=== PATIENT | female | born 1985 | race Caucasian/White ===

== ENCOUNTER 2021-12-18 09:17 | Emergency (ER) | payer OTHER, SELFPAY ==
--- NOTE | ~2021-12-18 | XR_ITS ---
XR chest 2V DATE: 12/18/2021 09:59 INDICATION: Post Covid cough since November 17 TECHNIQUE: PA and lateral views COMPARISON: None FINDINGS: Normal heart size. No hilar or mediastinal enlargement. No pulmonary infiltrate or consolidation, pleural effusion or pulmonary vascular congestion or pneumo thorax. Included skeletal structures are unremarkable. IMPRESSION: Negative Reviewed, dictated and finalized at location A. B RN IMPRESSION: Negative
[2021-12-18 09:24] VITALS: BP 129/78; PULSE 101; RESP 18; TEMP 37.4; O2SAT 98
--- NOTE | 2021-12-18 10:00 | ED.URI ---
HPI - URI/Sore Throat General Chief Complaint: Upper Respiratory Infection Stated Complaint: Cough/Fever/Loss of Taste Time Seen by Provider: 12/18/21 10:01 Source: patient and family Mode of arrival: ambulatory History of Present Illness HPI Narrative: PATIENT TESTED POSITIVE FOR COVID 19 ONE MONTH AGO. PATIENT PRESENTS WITH CONTINUED COUGH AND CONGESTION. FEVER OF 99 THIS AM. NO SHORTNESS OF BREATH AND NO CHEST PAIN. MD elicited complaint: fever and cough Related Data Allergies Allergy/AdvReac Type Severity Reaction Status Date / Time No Known Allergies Allergy Verified 12/18/21 09:46 Review of Systems Review of Systems: CONSTITUTIONAL: Denies fever, chills, or sweats. EYES: Denies visual changes, redness, or discharge. ENT: Denies rhinorrhea, congestion, sore throat, or otalgia. CARDIOVASCULAR: Denies chest pain, palpitations, or edema. RESPIRATORY: Denies dyspnea. reports cough and chest congestion GASTROINTESTINAL: Denies abdominal pain, nausea, vomiting, or diarrhea. GENITOURINARY: Denies dysuria or hematuria. SKIN: Denies rash or itching. MUSCULOSKELETAL: Denies back pain, joint pain, or myalgia. NEUROLOGIC: Denies headache, numbness, or weakness. PSYCHIATRIC: Denies anxiety or depression. Allergic/Immunologic: Comments: At time of signature, agree with nursing past medical, surgical, social and family history. There is no relevant family history pertinent to the presenting complaint Exam Narrative: GENERAL: Well-appearing, well-nourished, and in no acute distress. HEAD: Normocephalic, atraumatic. EYES: PERRLA and EOMI. ENT: Nares clear, no rhinorrhea or epistaxis. Mucous membranes moist. NECK: Supple. CHEST: Clear to auscultation. No respiratory distress. HEART: Regular rate and rhythm. No murmur heard. Normal peripheral pulses. ABDOMEN: Soft, nontender, nondistended, normal active bowel sounds. EXTREMITIES: Normal range of motion. No edema. SKIN: Warm, dry, no rash. NEURO: No focal deficits. Alert and oriented x3. Britney Coma Scale Eye Opening: Spontaneous 4 Britney Coma Scale Motor: Obeys Commands 6 Britney Coma Scale Verbal: Oriented 5 Britney Coma Scale Total 15 Course Course Level of Care: Express Care Visit Vital Signs Vital signs: Vital Signs Temperature 37.4 C 12/18/21 09:24 Pulse Rate 101 H 12/18/21 09:24 Respiratory Rate 18 12/18/21 09:24 Blood Pressure 129/78 12/18/21 09:24 Pulse Oximetry 98 12/18/21 09:24 Temperature 37.4 C 12/18/21 09:24 Pulse Rate 101 H 12/18/21 09:24 Respiratory Rate 18 12/18/21 09:24 Blood Pressure 129/78 12/18/21 09:24 Pulse Oximetry 98 12/18/21 09:24 Addressed elevated BP today. Today's blood pressure higher than recommended range. Discussed importance of follow -up with PCP and possible technician terminal and repeater effects/cardiovascular events related to HTN. Currently patient denies headache, dizziness, vision changes, CP or shortness of breath. Critical dx considered and discussed with pt. Educated patient on red flag s/s and to go to ED if s/s occur. Discussed with pt when to return to Express Care or primary care provider. Pt gave verbal undertstanding, all questions were answered, and pt was agreeable to plan MDM - URI/Sore Throat Differential Diagnosis Differential diagnosis: Likely upper respiratory infection, croup, otitis media, sinusitis, viral infection, bronchitis, influenza and pharyngitis Lab Data Labs: FINDINGS: Normal heart size. No hilar or mediastinal enlargement. No pulmonary infiltrate or consolidation, pleural effusion or pulmonary vascular congestion or pneumothorax. Included skeletal structures are unremarkable. Critical Care Time Critical Care Time Critical Care Time: No Discharge Plan Discharge Clinical Impression: Upper respiratory infection, Bronchitis Patient Disposition: Home, Self-Care Condition: Stable Instructions: Antibiotic Form Additional Instructions: Increase fluids and rest 1. Bronc
== END 2021-12-18 10:15 | disposition home or self-care (01) ==
PROVIDERS: Emergency Provider Nurse Practitioner Family
DX: J06.9 Acute upper respiratory infection, unspecified (principal); J40 Bronchitis, not specified as acute or chronic
CPT/HCPCS: 71046; 99213; G0463

== ENCOUNTER 2022-10-24 10:11 | Emergency (ER) | payer OTHER, SELFPAY ==
--- NOTE | ~2022-10-24 | XR_ITS ---
Right ankle Technique: AP, oblique, and lateral views were obtained. Clinical History: Pain Findings: No acute fracture or dislocation is seen. Osseous alignment is anatomic. Ankle mortise and other visualized joint spaces are preserved. Mild lateral soft tissue swelling noted. Impression: No fracture or dislocation. Mild lateral soft tissue swelling. Reviewed, dictated and finalized at location [] EDITOR Impression: No fracture or dislocation. Mild lateral soft tissue swelling.
--- NOTE | ~2022-10-24 | XR_ITS ---
Right foot Technique: AP, oblique, and lateral views were obtained. Clinical History: Status post fall, pain Findings: No acute fracture or dislocation is seen. Osseous alignment is anatomic. Joint spaces are p reserved without erosive or degenerative change. Soft tissues are unremarkable. Impression: Unremarkable right foot radiographs. Reviewed, dictated and finalized at location [] CHDOWNS TOE FORMER Impression: Unremarkable right foot radiographs.
[2022-10-24 10:16] VITALS: BP 138/84; PULSE 70; RESP 18; TEMP 36.9; O2SAT 100
--- NOTE | 2022-10-24 11:26 | ED.LOWEXIN ---
HPI - Extremity Injury (Lower) General Chief Complaint: Extremity Injury, Lower Stated Complaint: Right Ankle Injury Time Seen by Provider: 10/24/22 11:26 Source: patient Mode of arrival: ambulatory Limitations: no limitations History of Present Illness HPI Narrative: 37-year-old female presenting for complaint of right ankle pain after injury today. She states this morning she was walking down the stairs, missed a step and likely rolled the right ankle. She fell to the ground and had immediate pain To the top and outside of the ankle. She has taken ibuprofen for pain. Denies numbness, tingling, weakness of the extremity. Related Data Allergies Allergy/AdvReac Type Severity Reaction Status Date / Time No Known Allergies Allergy Verified 10/24/22 10:42 Review of Systems Review of Systems: CONSTITUTIONAL: Denies body aches, fever, chills EYES: Denies visual changes ENT: Denies rhinorrhea, congestion CARDIOVASCULAR: Denies chest pain, palpitations, or edema. RESPIRATORY: Denies cough or dyspnea. GASTROINTESTINAL: Denies abdominal pain, nausea, vomiting, or diarrhea. SKIN: Denies rash, itching, or wounds. MUSCULOSKELETAL: Per HPI NEUROLOGIC: Denies headache, numbness, tingling, or weakness. All systems reviewed & are unremarkable except as noted in HPI and below PMFSH Comments At time of signature, I have reviewed and agree with nursing past medical, surgical, social and family history unless otherwise noted. Please see nursing chart for further information. There is no relevant family history pertinent to the presenting complaint Exam Narrative: GENERAL: Well-appearing CHEST: Speaks in full sentences. No respiratory distress. HEART: Regular rate and rhythm. Normal and equal peripheral pulses. EXTREMITIES: Right foot has normal strength and sensation. limited range of motion at ankle, endorses pain with movement. moderate swelling and ecchymosis laterally with tenderness. No open wounds, or obvious deformity; alignment normal, pulse palpable and equal bilaterally, skin warm, dry, pink. Capillary refill less than 3 seconds. SKIN: Warm, dry, no rash. NEURO: Alert and oriented x3. PSYCH: Normal mood and affect Course Course Emergency Course: Patient is aware of diagnosis, understands and agrees to treatment plan. Anticipatory guidance given. Patient agrees to follow-up as directed and is aware of reasons to seek care at the emergency department. Portions of this record may have been created with voice recognition software Level of Care: Express Care Visit Vital Signs Vital signs: Vital Signs Temperature 98.4 F 10/24/22 10:16 Pulse Rate 70 10/24/22 10:16 Respiratory Rate 18 10/24/22 10:16 Blood Pressure 138/84 10/24/22 10:16 Pulse Oximetry 100 10/24/22 10:16 Oxygen Delivery Room Air 10/24/22 10:16 Temperature 98.4 F 10/24/22 10:16 Pulse Rate 70 10/24/22 10:16 Respiratory Rate 18 10/24/22 10:16 Blood Pressure 138/84 10/24/22 10:16 Pulse Oximetry 100 10/24/22 10:16 Oxygen Delivery Room Air 10/24/22 10:16 Reviewed MDM - Extremity Injury (Lower) MDM Narrative Medical decision making narrative: Results of x-ray reviewed with patient. MIQUEL wrap applied. Advised supportive measures and signs/symptoms to go to the ER. Pt is appropriate for outpt treatment and f/u. Differential Diagnosis Differential diagnosis: Likely ankle sprain and strain and ankle fracture Imaging Data Radiologist's impression: Patient: Rama Santos : 1985 MR#: [id number] Age/Sex: 37 / F Acct:[id number] Loc: [facility]? ? ADM Date: 10/24/22Attending Dr: Ordering Physician: Naty Roca APRN Date of Service: 10/24/22 Procedure(s): XR ankle RT min 3V Accession Number(s): [id number] cc: Naty Roca APRN; PLASTERER STUCCO PHYSICIAN~ Right ankle Technique: AP, oblique, and lateral views were obtained. Clinical History: Pain Findings: No acute fractur
== END 2022-10-24 11:40 | disposition home or self-care (01) ==
PROVIDERS: Emergency Provider Nurse Practitioner Family
DX: S93.401A Sprain of unspecified ligament of right ankle, initial encounter (principal); S96.911A Strain of unspecified muscle and tendon at ankle and foot level, right foot, initial encounter; W10.9XXA Fall (on) (from) unspecified stairs and steps, initial encounter
CPT/HCPCS: 73610; 73630; 99213; G0463

== ENCOUNTER 2022-10-31 10:09 | Outpatient (CLI) | payer OTHER, SELFPAY ==
--- NOTE | ~2022-10-31 | XR_ITS ---
EXAMINATION: XR foot RT min 3V, XR ankle RT min 3V DATE: 10/31/2022 10:25 INDICATION: Right foot pain TECHNIQUE: 1. Anteroposterior, mortise, additional oblique and lateral view of the right ankle were obtained. 2. Dorsoplantar, two oblique and lateral views of the right foot were obtained. COMPARISON: None. FINDINGS: Alignment of the right foot and ankle is normal. No fracture. Joint spaces are well maintained. No co rtical erosions or periosteal reaction. Right ankle joint effusion at the anterior recess. Mild soft tissue swelling about the foot and overlying the lateral malleolus. IMPRESSION: 1. Soft tissue swelling about the right foot and lateral malleolus with nonspecific right ankle joint effusion. No osseous abnormality. Reviewed, dictated and finalized at location A. TRICAL TIMING DEVICE CALIBRATOR IMPRESSION: 1. Soft tissue swelling about the right foot and lateral malleolus with nonspec ific right ankle joint effusion. No osseous abnormality.
== END 2022-10-31 10:10 | disposition home or self-care (01) ==
LOC: ANHBWCIMG 10:10
PROVIDERS: PCP Family Medicine; Visit Provider Family Medicine
DX: M79.673 Pain in unspecified foot (principal); S93.409A Sprain of unspecified ligament of unspecified ankle, initial encounter; X58.XXXA Exposure to other specified factors, initial encounter; M79.89 Other specified soft tissue disorders
CPT/HCPCS: 73610; 73630

== ENCOUNTER 2022-11-28 08:21 | Outpatient (CLI) | payer OTHER, SELFPAY ==
--- NOTE | ~2022-11-28 | XR_ITS ---
XR ankle RT min 3V DATE: 11/28/2022 08:40 INDICATION: Pain TECHNIQUE: 4 views COMPARISON: None FINDINGS: No fracture or dislocation of the ankle or disruption of the ankle mortise. IMPRESSION: Negative Reviewed, dictated and finalized at location B. TREATING OPERATOR IMPRESSION: Negative
[2022-11-28 19:48] LABS: Hematocrit 42.5 % (37.0-47.0); Mean Corpuscular HGB Conc 32.9 g/dl (32-36); Mean Corpuscular Hemoglobin 31.3 pg (26-34); Mean Corpuscular Volume 95.1 fl (80-100); Mean Platelet Volume 9.8 fl (7.4-10.4); Platelet Count Result 286 k/mm3 (150-375); Red Blood Count 4.47 M/mm3 (4.2-5.4); Red Cell Distribution Width 13.4 % (11.5-14.5)
[2022-11-28 20:31] LABS: Alanine Aminotransferase 22 U/L (6-35); Albumin Level 4.4 g/dL (3.5-5.1); Alkaline Phosphatase 71 U/L (38-126); Anion Gap 7 mmol/L (8-16); Aspartate Amino Transferase 37 U/L (14-36); Bilirubin,Total 0.3 mg/dL (0.2-1.3); Blood Urea Nitrogen 13 mg/dL (7-17); Calcium 9.1 mg/dL (8.4-10.2); Carbon Dioxide 27 mmol/L (22-30); Chloride 105 mmol/L (98-107); Cholesterol 184 mg/dL (0-200); Estimated Glomerular Filt Rate > 60; Glucose 92 mg/dL (65-110); HDL Direct 56 mg/dL; Potassium 4.7 mmol/L (3.4-5.0); Sodium 139 mmol/L (137-145); Triglycerides 64 mg/dL (<150)
[2022-11-28 20:45] LABS: LDL Cholesterol Direct 93 mg/dL
== END 2022-11-28 08:22 | disposition home or self-care (01) ==
LOC: ANHBWCLAB 08:22
PROVIDERS: PCP Family Medicine; Visit Provider Family Medicine
DX: Z00.00 Encounter for general adult medical examination without abnormal findings (principal); M25.579 Pain in unspecified ankle and joints of unspecified foot; R60.9 Edema, unspecified
CPT/HCPCS: 36415; 73610; 80053; 80061; 85027

== ENCOUNTER 2023-01-03 12:55 | Outpatient (CLI) | payer OTHER, SELFPAY ==
--- NOTE | ~2023-01-03 | MR_ITS ---
MRI of the right ankle Clinical history: Pain Technique: Coronal proton-density and proton-density fat-sat images, axial proton-density and proton- density fat-sat images, and sagittal proton-density and proton-density fat-sat images were acquired. Findings: Syndesmotic ligaments are intact. There is thickening and mild increased signal of the ante rior talofibular ligament. Posterior talofibular and calcaneofibular ligaments are intact. Deltoid li gament is intact. Medial flexor tendons, peroneal tendons, anterior extensor tendons, and Achilles tendon are intact. Visualized bone marrow signals are unremarkable. Joint spaces are preserved. No osteochondral lesion of the talar dome. No joint effusion. Plantar fascia is intact. Normal signal preserved in the sinus Tarsi. No soft tissue mass or fluid co llection evident. Impression: Probable chronic sprain or partial injury of the anterior talofibular ligament. Reviewed, dictated and finalized at [facility]. CARRIER DRIVER Impression: Probable chronic sprain or partial injury of the anterior talofibular ligament.
== END 2023-01-03 12:56 ==
LOC: MICIMG 12:56
PROVIDERS: PCP Family Medicine; Visit Provider Orthopaedic Surgery
DX: M25.571 Pain in right ankle and joints of right foot (principal)
CPT/HCPCS: 73721

== ENCOUNTER 2023-02-28 08:35 | Outpatient (CLI) | payer OTHER, SELFPAY | END 2023-02-28 08:36 | disposition home or self-care (01) | LOC: ANHBWCLAB 08:36 | PROVIDERS: PCP Family Medicine; Visit Provider Nurse Practitioner Family | DX: E66.9 Obesity, unspecified (principal) | CPT/HCPCS: 36415; 84443 ==

== ENCOUNTER 2023-06-12 10:24 | Outpatient (CLI) | payer OTHER, SELFPAY ==
--- NOTE | ~2023-06-12 | XR_ITS ---
EXAMINATION: XR chest 2V DATE: 06/12/2023 10:34 INDICATION: Cough TECHNIQUE: PA and lateral views of the chest were obtained. COMPARISON: Chest radiograph dated 12/18/2021 FINDINGS: New airspace opacity posterolateral right lower lobe. No pulmonary edema, pleural effusion or pneumot horax. The cardiomediastinal silhouette is normal. Mild thoracic spondylosis. IMPRESSION: 1. Right lower lobe opacities which could represent pneumonia or atelectasis. Reviewed, dictated and finalized at location A.
== END 2023-06-12 10:25 | disposition home or self-care (01) ==
LOC: ANHBWCAUD 10:25 → ANHBWCIMG 10:28
PROVIDERS: PCP Family Medicine; Visit Provider Nurse Practitioner Adult Health
DX: R05.9 Cough, unspecified (principal); R91.8 Other nonspecific abnormal finding of lung field
CPT/HCPCS: 71046

== ENCOUNTER 2023-06-21 08:22 | Outpatient (CLI) | payer OTHER, SELFPAY ==
--- NOTE | ~2023-06-21 | XR_ITS ---
Clinical Indication: Pneumonia PA and lateral views of the chest: Comparison: 06/12/2023 Findings: The lungs are clear, without evidence of focal consolidation or pleural effusion. Cardiome diastinal silhouette is within normal limits. Bones and soft tissues are unremarkable. Impression: Normal chest. Reviewed, dictated and finalized at location . Impression: Normal chest.
== END 2023-06-21 08:23 | disposition home or self-care (01) ==
PROVIDERS: PCP Family Medicine; Visit Provider Nurse Practitioner Adult Health
DX: J18.9 Pneumonia, unspecified organism (principal)
CPT/HCPCS: 71046

== ENCOUNTER 2023-08-27 08:30 | Outpatient (CLI) | payer OTHER, SELFPAY ==
--- NOTE | ~2023-08-27 | XR_ITS ---
XR_[id number]_CR DATE: 08/27/2023 08:45 INDICATION: Neck pain TECHNIQUE: AP, lateral and swimmer views COMPARISON: None FINDINGS: There is straightening of the cervical spine which may be due to muscle spasm. Moderate degenerative disc disease and anterior spurring at C5-6 and C6-7. Mild spurring at the uncovertebral joints in the mid and lower cervical spine. No fracture or dislocation or locked facet or prevertebral soft tissue swelling is detected. IMPRESSION: Moderate degenerative disc disease at C5-6 and C6-7 Reviewed, dictated and finalized at Location A. Reviewed, dictated and finalized at location L.
== END 2023-08-27 08:31 | disposition home or self-care (01) ==
LOC: ANHBWCIMG 08:32
PROVIDERS: PCP Nurse Practitioner Adult Health; Visit Provider Nurse Practitioner Adult Health
DX: M50.322 Other cervical disc degeneration at C5-C6 level (principal); M50.323 Other cervical disc degeneration at C6-C7 level
CPT/HCPCS: 72040

== ENCOUNTER 2023-08-28 08:41 | Outpatient (CLI) | payer OTHER, SELFPAY ==
--- NOTE | 2023-08-28 08:56 | ECG_ITS ---
Measurements Intervals [place] Rate: 68 P: 9 SC: 115 QRS: 50 QRSD: 85 T: 48 QT: 404 QTc: 432 Interpretive Statements SINUS RHYTHM WITH SINUS ARRHYTHMIA WITH SHORT SC INTERVAL NONSPECIFIC ST ABNORMALITY BORDERLINE ECG NO PREVIOUS ECG AVAILABLE FOR COMPARISON Electronically Signed On 08-28-2023 18:26:44 CDT by Sohrty Ross M.D.
== END 2023-08-28 08:42 | disposition home or self-care (01) ==
PROVIDERS: PCP Nurse Practitioner Adult Health; Visit Provider Nurse Practitioner Adult Health
DX: R94.31 Abnormal electrocardiogram [ECG] [EKG] (principal)
CPT/HCPCS: 93005

== ENCOUNTER 2023-11-01 08:38 | Outpatient (CLI) | payer OTHER, SELFPAY ==
--- NOTE | 2023-11-01 09:03 | EST_ITS ---
Patient Info Name: Rama Santos Age: 38 years : 1985 Gender: Female Ht: 67 in Wt: 200 lbs BSA: 2.10 m2 HR: 78 bpm BP: 113 / 74 mmHg Heart Rhythm: Sinus Rhythm Exam Date: 11/01/2023 9:15 AM Exam Location: Echo Lab Patient Status: Outpatient Admit Date: 11/01/2023 Staff Ordering Physician: Simone Velazquez DO Attending Provider: Simone Velazquez DO Exercise Technologist: Em Tinajero CT Exercise Physician: Simone Velazquez DO Exam Type: CA stress test treadmill Study Info Indications R07.89 - Other chest pain A treadmill exercise stress test was performed. Summary 1. 1. Negative Sulaiman exercise stress test for ischemic ST changes by ECG criteria. 2. 2. Good functional capacity, achieving 10.9 METs of workload. 3. 3. Appropriate HR response to exercise. 4. 4. Appropriate HR recovery at 1 minute post exercise. 5. 5. No imaging with stress testing. 6. 6. Patient informed of the above results. Protocol: Sulaiman Stress ECG Details Stage: REST Duration (min): 0 min : 59 sec Speed (mph): 0.0 Grade (%): 0 HR (bpm): 78 SBP (mmHg): 113 DBP (mmHg): 74 METS: --- Stage: REST Duration (min): 3 min : 47 sec Speed (mph): 0.0 Grade (%): 0 HR (bpm): 81 SBP (mmHg): 113 DBP (mmHg): 74 METS: --- Stage: STAGE 1 Duration (min): 1 min : 0 sec Speed (mph): 1.7 Grade (%): 10 HR (bpm): 113 SBP (mmHg): 113 DBP (mmHg): 74 METS: --- Stage: STAGE 1 Duration (min): 2 min : 0 sec Speed (mph): 1.7 Grade (%): 10 HR (bpm): 115 SBP (mmHg): 113 DBP (mmHg): 74 METS: --- Stage: STAGE 1 Duration (min): 3 min : 0 sec Speed (mph): 1.7 Grade (%): 10 HR (bpm): 108 SBP (mmHg): 113 DBP (mmHg): 61 METS: --- Stage: STAGE 2 Duration (min): 1 min : 0 sec Speed (mph): 2.5 Grade (%): 12 HR (bpm): 118 SBP (mmHg): 113 DBP (mmHg): 61 METS: --- Stage: STAGE 2 Duration (min): 2 min : 0 sec Speed (mph): 2.5 Grade (%): 12 HR (bpm): 123 SBP (mmHg): 108 DBP (mmHg): 53 METS: --- Stage: STAGE 2 Duration (min): 3 min : 0 sec Speed (mph): 2.5 Grade (%): 12 HR (bpm): 131 SBP (mmHg): 119 DBP (mmHg): 59 METS: --- Stage: STAGE 3 Duration (min): 1 min : 0 sec Speed (mph): 3.4 Grade (%): 14 HR (bpm): 142 SBP (mmHg): 144 DBP (mmHg): 61 METS: --- Stage: STAGE 3 Duration (min): 2 min : 0 sec Speed (mph): 3.4 Grade (%): 14 HR (bpm): 152 SBP (mmHg): 144 DBP (mmHg): 61 METS: --- Stage: STAGE 3 Duration (min): 3 min : 0 sec Speed (mph): 3.4 Grade (%): 14 HR (bpm): 160 SBP (mmHg): 144 DBP (mmHg): 61 METS: --- Stage: STAGE 4 Duration (min): 0 min : 20 sec Speed (mph): 4.2 Grade (%): 16 HR (bpm): 168 SBP (mmHg): 144 DBP (mmHg): 61 METS: --- Stage: RECOVERY Duration (min): 0 min : 39 sec Speed (mph): 0.0 Grade (%): 0 HR (bpm): 156 SBP (mmHg): 144 DBP (mmHg): 61 ME
== END 2023-11-01 08:39 | disposition home or self-care (01) ==
LOC: ANHCARD 08:39
PROVIDERS: PCP Family Medicine; Visit Provider Internal Medicine Cardiovascular Disease
DX: R07.9 Chest pain, unspecified (principal)
CPT/HCPCS: 93017